=== PATIENT | male | born 1980 | race Caucasian/White ===

== ENCOUNTER → 2021-11-05 | Outpatient (CLI) | payer BC ==
[~2021-11-05] MED LIST: COLACE 100MG C100 MG PO; CYCLOBENZAPRINE10 MG PO; CYMBALTA60 MG PO; NORCO 7.5-3251 EACH PO
== END ==
LOC: KOH-I 10-31 10:00
DX: M75.102 Unspecified rotator cuff tear or rupture of left shoulder, not specified as traumatic (principal); M67.814 Other specified disorders of tendon, left shoulder
CPT/HCPCS: 73221